=== PATIENT | male | born 1935 | race Caucasian/White ===

== ENCOUNTER 2018-03-13 18:05 | Emergency (ER) | payer BC, MEDICARE ==
[2018-03-13] MEDS ORDERED: Famotidine 20 MG/2 ML SDV IVPUSH ONE (18:11)
[2018-03-13] MEDS ORDERED: Ondansetron 4 MG/2 ML SDV IVPUSH ONE (18:11)
[2018-03-13] MEDS ORDERED: metroNIDAZOLE/Normal Saline 500 MG in Premix Bag 1 BAG IV ONE (18:11)
[2018-03-13] MEDS ORDERED: Sodium Chloride 0.9% 10 ML Syringe FLUSH PRN (18:11)
[2018-03-13] MEDS ORDERED: Pantoprazole 40 MG Vial IVPUSH ONE (18:11)
[2018-03-13] MEDS ORDERED: cefTRIAXone 1 GM in Sodium Chloride 0.9% 100 ML IV ONE (18:11)
--- NOTE | 2018-03-13 18:11 | EDM.PDOC ---
ED HPI GENERAL MEDICAL PROBLEM - General Chief Complaint: Abdominal Pain Stated Complaint: abdominal pain Time Seen by Provider: 03/13/18 18:05 Source of Information: Reports: Patient, Jail Records, Old Records ([facility] EMR. No paper hospital chart available.) History Limitations: Reports: No Limitations - History of Present Illness INITIAL COMMENTS - FREE TEXT/NARRATIVE: Patient was brought to the emergency room via transport vehicle from [facility] in [place] for evaluation of progressive diffuse abdominal pain and cramping with some nausea with patient not having a good bowel movement for the last 5-7 days. He did have some mild loose minimal diarrhea yesterday evening with patient given Tylenol but no other treatments or medications to this point.. He does have a significant history of recurrent diverticulitis and multiple bowel surgeries as below. The patient denies any chest pain/pressure, heart flutter, dizziness, orthostasis, orthopnea, diaphoresis, paresthesias, recent decreased exercise tolerance, or any other anginal-type symptoms. No recent history of heartburn, emesis, significant diarrhea, melena, gross hematochezia, or any food intolerance, including fatty foods, etc.. The patient also denies any recent fever, wheezing, progressive dyspnea, etc., although he has had a yellowish productive cough during the last several days. He denies any gross hematuria, colic, or other UTI symptoms. Patient states his symptoms have progressed since Tuesday evening. Onset: Gradual Onset Date: 03/11/18 Duration: Constant, Getting Worse Location: Reports: Abdomen. Denies: Head, Face, Neck, Chest, Back, Pelvis, Upper Extremity, Left, Upper Extremity, Right, Radiates to Quality: Reports: Pressure, Same as Previous Episode Severity: Moderate Improves with: Reports: None Worsens with: Reports: None Context: Reports: Other (As above). Denies: Sick Contact, Trauma Associated Symptoms: Reports: Cough, cough w sputum, Nausea/Vomiting (No emesis) , Shortness of Breath (Stable chronic with O2 therapy). 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 Cardiovascular History: Reports: CAD, High Cholesterol, Hypertension, [place] Respiratory History: Reports: Bronchitis, Recurrent, COPD, Intubation, Previous , Pneumonia, Recurrent, Sleep Apnea, Other (See Below). 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 Benign pulmonary nodule. Gastrointestinal History: Reports: Bowel Obstruction, Chronic Constipation, Chronic Diarrhea, Diverticulosis, GERD, Irritable Bowel Syndrome, Other (See Below) Other Gastrointestinal History: Recurrent diverticulitis requiring surgeries as below. Nonoperable ventral abdominal and inguinal hernias. Genitourinary History: Reports: Chronic Renal Insuffiency, Dialysis, Peritoneal , Retention, Urinary Musculoskeletal History: Reports: Arthritis, Back Pain, Chronic, Fracture, Neck Pain, Chronic, Osteoarthritis, RA, Other (See Below) Other Musculoskeletal History: Right hip fracture and left elbow fracture with surgeries as below. Psychiatric History: Reports: Anxiety, Depression, Other (See Below) Other Psychiatric History: Chronic insomnia. Endocrine/Metabolic History: Reports: Vitamin D Deficiency, Other (See Below) Other Endocrine/Metabolic History: Hyperkalemia. Hematologic History: Reports: Anemia, B12 Deficiency, Iron Deficiency - Infectious Disease History Infectious Disease History: Reports: MRSA - Past Surgical History GI Surgical History: Reports: Appendectomy, Cholecystectomy, Colon, Other (See Below) Other GI Surgeries/Procedures: Multiple previous abdominal surgeries including possible partial colectomies secondary to diverticulitis and recurrent bowel obstructions. Musculoskeletal Surgical History: Reports: Joint Replacement, ORIF, Other (See Below) Other Musculoskeletal Surgeries/Procedures:: Left elbow prosthesis in January 2017 with concomitant right hip ORIF Social & Family History - Tobacco Use Smoking Status *Q: Former Smoker Tobacco Use Within Last Twelve Months: No Years of Tobacco use: 30 Packs/Tins Daily: 1.5 Packs/Tins Daily Comment: Stop smoking in 1985. Used Tobacco, but Quit: Yes Smoking Cessation Information Provided To Patient: No Second Hand Smoke Exposure: No Second Hand Smoke Education Provided: No - Living Situation & Occupation Living situation: Reports: Extended Care Facility ([facility] in [facility]) ED ROS GENERAL - Review of Systems Review Of Systems: ROS reveals no pertinent complaints other than HPI. ED EXAM, GI/ABD - Physical Exam Exam: See Below Exam Limited By: No Limitations General Appearance: Alert, WD/WN, No Apparent Distress, Anxious (Mild) Eyes: Bilateral: Normal Appearance (No nystagmus), EOMI (PERRLA) Ears: Normal External Exam, Normal Canal, Hearing Grossly Normal, Normal TMs Nose: Normal Inspection, Normal Mucosa, No Blood Throat/Mouth: Normal Lips, Normal Gums, Normal Oropharynx, No Airway Compromise. No: Normal Teeth (Complete dentures uppers and lowers), Dysphagia, Perioral Cyanosis Head: Atraumatic, Normocephalic. No: Facial Swelling, Facial Tenderness Neck: Supple, Non-Tender, Full Range of Motion, Carotid Bruit (Bilateral carotid bruitsmild). No: Lymphadenopathy (L), Lymphadenopathy (R), Thyromegaly Respiratory/Chest: No Respiratory Distress, Lungs Clear, Normal Breath Sounds, No Accessory Muscle Use, Chest Non-Tender. No: Pleural Rub, Retractions Cardiovascular: Normal Peripheral Pulses, Regular Rate, Rhythm, No Edema, No Gallop, No JVD, No Murmur, No Rub. No: Gallop/S3, Gallop/S4, Friction Rub GI/Abdominal Exam: Pelvis Stable, Distended (Severe abdominal distention), Rigid , Tender (Mild diffuse palpation pain), Abnormal Bowel Sounds (Moderate decreased diffuse high-pitched bowel sounds), Hernia (20 cm in diameter large ventral abdominal hernia with 8 cm periumbilical hernia and multiple abdominal incisions from previous surgeries). No: Guarding, Rebound (Male) Exam: Deferred Rectal (Males) Exam: Deferred Back Exam: Normal Inspection, Full Range of Motion. No: CVA Tenderness (L), CVA Tenderness (R), Muscle Spasm Extremities: Normal Inspection, Normal Range of Motion, Non-Tender, No Pedal Edema, Normal Capillary Refill. No: Iam's Sign Neurological: Alert, Oriented, CN II-XII Intact, Normal Cognition, Normal Gait, No Motor/Sensory Deficits Psychiatric: Anxious (Mild). No: Depressed Mood Skin Exam: Warm, Dry, Intact, Normal Color, No Rash. No: Diaphoretic, Ecchymosis, Wound/Incision Lymphatic: No Adenopathy Course - Vital Signs Last Recorded V/S: Last Vital Signs Temp 36.1 C 03/13/18 19:11 Pulse 90 03/13/18 19:11 Resp 20 03/13/18 19:11 BP 106/65 03/13/18 19:11 Pulse Ox 3 L 03/13/18 19:11 Vital Signs - 24 hr 03/13/18 03/13/18 03/13/18 18:05 18:30 19:11 Temperature [ 36.7 C 36.1 C Temporal] Pulse, 81 74 90 Peripheral [ Left Pulse Oximetry] Respiratory 16 16 20 Rate Blood Pressure 106/65 110/64 106/65 [Right Upper Arm] O2 Sat by Pulse 94 L 95 3 L Oximetry - Orders/Labs/Meds Orders: Active Orders 24 hr Category Date Time Status Cardiac Monitoring [RC] . DIRECTED Care 03/13/18 19:15 Active Peripheral IV Care [RC] . DIRECTED Care 03/13/18 18:11 Active Abdomen Series w Chest 1V [CR] Stat Exams 03/13/18 18:11 Taken CULTURE BLOOD [BC] Stat Lab 03/13/18 18:25 Received CULTURE BLOOD [BC] Stat Lab 03/13/18 18:32 Received CULTURE SPUTUM + SMEAR [RM] Routine Lab 03/13/18 19:01 Results Blood Culture x2 Reflex Set [OM.PC] Urgent Oth 03/13/18 18:11 Ordered Nasogastric Orogastric Tube Insertion [OM.PC] Routine Oth 03/13/18 19:11 Ordered Obtain Past Medical Record [OM.PC] Urgent Oth 03/13/18 18:11 Active Peripheral IV Insertion Adult [OM.PC] Stat Oth 03/13/18 18:11 Ordered Resuscitation Status Stat Resus Stat 03/13/18 18:11 Ordered Labs: Laboratory Tests 03/13/18 03/13/18 03/13/18 Range/Units 18:25 18:25 18:25 WBC 9.3 (4.0-10.2) K/uL RBC 3.40 L (4.33-5.41) M/uL Hgb 12.1 L (13.1-16.8) g/dL Hct 36.8 L (39.0-49.0) % MCV 108.2 H (84.0-98.0) fL MCH 35.6 H (28.2-33.3) pg MCHC 32.9 (31.7-36.0) g/dL RDW 15.2 H (11.2-14.1) % Plt Count 205 (150-350) K/uL Neut % (Auto) 69.2 (45.0-80.0) % Lymph % (Auto) 16.7 (10.0-50.0) % [place] % (Auto) 12.0 (2.0-14.0) % Eos % (Auto) 1.8 (0.0-5.0) % Baso % (Auto) 0.3 (0.0-2.0) % Neut # (Auto) 6.44 (1.40-7.00) K/uL Lymph # (Auto) 1.56 (0.50-3.50) K/uL [place] # (Auto) 1.12 H (0.00-1.00) K/uL Eos # (Auto) 0.17 (0.00-0.50) K/uL Baso # (Auto) 0.03 (0.00-0.20) K/uL PT 11.2 (9.5-12.0) SEC INR 1.0 APTT 25.9 (21.0-31.3) SEC Sodium (136-145) mmol/L Potassium (3.5-5.1) mmol/L Chloride (98-107) mmol/L Carbon Dioxide (21.0-32.0) mmol/L BUN (7-18) mg/dL Creatinine (0.51-1.17) mg/dL Est Cr Clr Drug Dosing Estimated GFR (MDRD) mL/min Glucose (74-106) mg/dL Lactic Acid (0.4-2.0) mmol/L Uric Acid (2.6-7.2) mg/dL Calcium (8.5-10.1) mg/dL Magnesium (1.8-2.4) mg/dL Total Bilirubin (0.2-1.0) mg/dL AST (15-37) U/L ALT (12-78) U/L Alkaline Phosphatase (46-116) IU/L Total Protein (6.4-8.2) g/dL Albumin (3.4-5.0) g/dL Amylase 50 (25-115) U/L Lipase (73-393) U/L 01/21/19 01/21/19 Range/Units 18:25 18:25 WBC (4.0-10.2) K/uL RBC (4.33-5.41) M/uL Hgb (13.1-16.8) g/dL Hct (39.0-49.0) % MCV (84.0-98.0) fL MCH (28.2-33.3) pg MCHC (31.7-36.0) g/dL RDW (11.2-14.1) % Plt Count (150-350) K/uL Neut % (Auto) (45.0-80.0) % Lymph % (Auto) (10.0-50.0) % [place] % (Auto) (2.0-14.0) % Eos % (Auto) (0.0-5.0) % Baso % (Auto) (0.0-2.0) % Neut # (Auto) (1.40-7.00) K/uL Lymph # (Auto) (0.50-3.50) K/uL [place] # (Auto) (0.00-1.00) K/uL Eos # (Auto) (0.00-0.50) K/uL Baso # (Auto) (0.00-0.20) K/uL PT (9.5-12.0) SEC INR APTT (21.0-31.3) SEC Sodium 142 (136-145) mmol/L Potassium 3.7 (3.5-5.1) mmol/L Chloride 102 (98-107) mmol/L Carbon Dioxide 30.1 (21.0-32.0) mmol/L BUN 15 (7-18) mg/dL Creatinine 1.16 (0.51-1.17) mg/dL Est Cr Clr Drug Dosing TNP Estimated GFR (MDRD) > 60 mL/min Glucose 110 H (74-106) mg/dL Lactic Acid 0.9 (0.4-2.0) mmol/L Uric Acid 7.8 H (2.6-7.2) mg/dL Calcium 9.1 (8.5-10.1) mg/dL Magnesium 2.0 (1.8-2.4) mg/dL Total Bilirubin 0.6 (0.2-1.0) mg/dL AST 20 (15-37) U/L ALT 22 (12-78) U/L Alkaline Phosphatase 99 (46-116) IU/L Total Protein 7.0 (6.4-8.2) g/dL Albumin 3.7 (3.4-5.0) g/dL Amylase (25-115) U/L Lipase 112 (73-393) U/L Meds: Medications Discontinued Medications Generic Name Dose Route Start Last Admin Trade Name Freq PRN Reason Stop Dose Admin Famotidine 40 mg 03/13/18 18:11 03/13/18 18:43 Pepcid IVPUSH 03/13/18 18:12 40 mg ONETIME ONE Administration Ceftriaxone Sodium 1 gm/ 100 mls @ 200 mls/hr 03/13/18 18:11 03/13/18 18:42 Sodium Chloride IV 03/13/18 18:40 200 mls/hr ONETIME ONE Administration Metronidazole 500 mg/ Premix 100 mls @ 100 mls/hr 03/13/18 18:11 03/13/18 19: 17 IV 03/13/18 19:10 100 mls/hr ONETIME ONE Administration Ondansetron HCl 4 mg 03/13/18 18:11 03/13/18 18:43 Zofran IVPUSH 03/13/18 18:12 4 mg ONETIME ONE Administration Pantoprazole Sodium 40 mg 03/13/18 18:11 03/13/18 18:42 Protonix Iv IVPUSH 03/13/18 18:12 40 mg ONETIME ONE Administration Sodium Chloride 10 ml 03/13/18 18:11 Saline Flush FLUSH ASDIRECTED PRN Keep Vein Open - Radiology Interpretation Free Text/Narrative:: Acute abdominal x-rays shows severe diffuse bowel gaseous distention with questionable free air however difficult to determine secondary to above bowel findings. Evidence of probable obstruction versus volvulus. Note moderate aortic valve calcification with additional multiple pulmonary obstructive disease but no pneumothorax, CHF, etc.. Note status post right hip ORIF and osteoarthritic changes in thoracic and lumbar spine. Note subsequent telephone consultation with Dr. Bird, radiologist, who does agree with the above findings, although he does not suspect free air at this time. CT scan advisable. Departure - Departure Time of Disposition: 21:45 Disposition: DC/Tfer to Acute Hospital 02 Condition: Fair Clinical Impression: Peptic reflux disease, Renal insufficiency, Macrocytic anemia, Hyperuricemia Abdominal pain Qualifiers: Abdominal location: generalized Qualified Code(s): R10.84 - Generalized abdominal pain COPD (chronic obstructive pulmonary disease) Qualifiers: COPD type: emphysema Emphysema type: panlobular Qualified Code(s): J43.1 - Panlobular emphysema Rheumatoid arthritis Qualifiers: Rheumatoid arthritis location: multiple sites Rheumatoid factor presence: unspecified presence Qualified Code(s): M06.9 - Rheumatoid arthritis, unspecified Hypertension Qualifiers: Hypertension type: essential hypertension Qualified Code(s): I10 - Essential ( primary) hypertension Coronary artery disease Qualifiers: Coronary Disease-Associated Artery/Lesion type: [place] artery [place] vs. transplanted heart: [place] heart Associated angina: without angina Qualified Code(s): I25.10 - Atherosclerotic heart disease of [place] coronary artery without angina pectoris Abdominal hernia Qualifiers: Hernia type: ventral Obstruction and gangrene presence: without obstruction or gangrene Qualified Code(s): K43.9 - Ventral hernia without obstruction or gangrene - Discharge Information *PRESCRIPTION DRUG MONITORING PROGRAM REVIEWED*: Not Applicable *COPY OF PRESCRIPTION DRUG MONITORING REPORT IN PATIENT EDWINA: Not Applicable Referrals: Sheets-Denita Valdez MD [Primary Care Provider] - Forms: ED Department Discharge, Interfacility Transfer EMTALA - Problem List & Annotations (1) Abdominal pain SNOMED Code(s): 03688308 Code(s): R10.9 - UNSPECIFIED ABDOMINAL PAIN Status: Acute Priority: High Onset Date: ~03/11/18 Annotation/Comment:: Progressive abdominal pain likely secondary to developing bowel obstruction secondary to either diverticulitis, abdominal adhesions, or volvulus. CT scan of the abdomen and pelvis is advisable. Our CT scanner is unfortunately down this evening. Initial telephone consultation at 19:[address] Ortiz, hospitalist at the [facility] in [place], who wanted to consult with her general surgeon prior to accepting the patient. Subsequent telephone consultation at 19:45 hours with patient accepted for direct admission to their facility. No further treatment recommendations were given. Secondary to ambulance availability hospital transfer was delayed without sequelae. Basic ambulance transport apparently also not available. Note immediately upon patient's arrival to the emergency room we did treat him prophylactically with IV Rocephin, IV Flagyl, IV Pepcid, and IV Protonix. He was also given IV Zofran for his mild nausea. The patient refused recommended NG tube which was canceled per his request. Vital signs and physical exam were stable at time of transfer. Qualifiers: Abdominal location: generalized Qualified Code(s): R10.84 - Generalized abdominal pain (2) Abdominal hernia SNOMED Code(s): 52588748 Code(s): K46.9 - UNSPECIFIED ABDOMINAL HERNIA WITHOUT OBSTRUCTION OR GANGRENE Status: Chronic Priority: Medium Annotation/Comment:: Inoperable by patient history. Qualifiers: Hernia type: ventral Obstruction and gangrene presence: without obstruction or gangrene Qualified Code(s): K43.9 - Ventral hernia without obstruction or gangrene (3) COPD (chronic obstructive pulmonary disease) SNOMED Code(s): 04452073 Code(s): J44.9 - CHRONIC OBSTRUCTIVE PULMONARY DISEASE, UNSPECIFIED Status : Chronic Priority: Medium Annotation/Comment:: Yellowish productive cough with sputum obtained for culture and sensitivity. No direct pneumonia by today' s x-rays, however. IV Rocephin started as above. No fever or leukocytosis. Qualifiers: COPD type: emphysema Emphysema type: panlobular Qualified Code(s): J43.1 - Panlobular emphysema (4) Coronary artery disease SNOMED Code(s): 89274745 Code(s): I25.10 - ATHSCL HEART DISEASE OF [place] CORONARY ARTERY W/O ANG PCTRS Status: Chronic Priority: Medium Annotation/Comment:: No recent chest pain or anginal type symptoms Qualifiers: Coronary Disease-Associated Artery/Lesion type: [place] artery [place] vs. transplanted heart: [place] heart Associated angina: without angina Qualified Code(s): I25.10 - Atherosclerotic heart disease of [place] coronary artery without angina pectoris (5) Hypertension SNOMED Code(s): 88536663 Code(s): I10 - ESSENTIAL (PRIMARY) HYPERTENSION Status: Chronic Priority : Medium Annotation/Comment:: The blood pressures were stable in the emergency room Qualifiers: Hypertension type: essential hypertension Qualified Code(s): I10 - Essential (primary) hypertension (6) Hyperuricemia SNOMED Code(s): 72850611 Code(s): E79.0 - HYPERURICEMIA W/O SIGNS OF INFLAM ARTHRIT AND TOPHACEOUS DIS Status: Acute Priority: Medium Onset Date: 03/13/18 Annotation/ Comment:: Newly diagnosed. (7) Macrocytic anemia SNOMED Code(s): 89554489 Code(s): D53.9 - NUTRITIONAL ANEMIA, UNSPECIFIED Status: Chronic Priority : Medium Annotation/Comment:: Known history of vitamin B-12 and folic acid deficiency with current supplementation. (8) Peptic reflux disease SNOMED Code(s): 537370220 Code(s): K21.9 - GASTRO-ESOPHAGEAL REFLUX DISEASE WITHOUT ESOPHAGITIS Status: Chronic Priority: Medium Annotation/Comment:: Stable by history with IV Pepcid and IV Protonix given as above. (9) Renal insufficiency SNOMED Code(s): 369755866, 721752495 Code(s): N28.9 - DISORDER OF KIDNEY AND URETER, UNSPECIFIED Status: Chronic Priority: Medium Annotation/Comment:: Stable by history with normal creatinine today. (10) Rheumatoid arthritis SNOMED Code(s): 98029865 Code(s): M06.9 - RHEUMATOID ARTHRITIS, UNSPECIFIED Status: Chronic Priority: Medium Annotation/Comment:: Stable by history. Qualifiers: Rheumatoid arthritis location: multiple sites Rheumatoid factor presence: unspecified presence Qualified Code(s): M06.9 - Rheumatoid arthritis, unspecified - Problem List Review Problem List Initiated/Reviewed/Updated: Yes - My Orders Last 24 Hours: My Active Orders 03/13/18 18:11 Peripheral IV Care [RC] . DIRECTED Abdomen Series w Chest 1V [CR] Stat Blood Culture x2 Reflex Set [OM.PC] Urgent Obtain Past Medical Record [OM.PC] Urgent Peripheral IV Insertion Adult [OM.PC] Stat Resuscitation Status Stat 03/13/18 18:25 CULTURE BLOOD [BC] Stat 03/13/18 18:32 CULTURE BLOOD [BC] Stat 03/13/18 19:01 CULTURE SPUTUM + SMEAR [RM] Routine 03/13/18 19:11 Nasogastric Orogastric Tube Insertion [OM.PC] Routine 03/13/18 19:15 Cardiac Monitoring [RC] . DIRECTED - Assessment/Plan Last 24 Hours: My Active Orders 03/13/18 18:11 Peripheral IV Care [RC] . DIRECTED Abdomen Series w Chest 1V [CR] Stat Blood Culture x2 Reflex Set [OM.PC] Urgent Obtain Past Medical Record [OM.PC] Urgent Peripheral IV Insertion Adult [OM.PC] Stat Resuscitation Status Stat 03/13/18 18:25 CULTURE BLOOD [BC] Stat 03/13/18 18:32 CULTURE BLOOD [BC] Stat 03/13/18 19:01 CULTURE SPUTUM + SMEAR [RM] Routine 03/13/18 19:11 Nasogastric Orogastric Tube Insertion [OM.PC] Routine 03/13/18 19:15 Cardiac Monitoring [RC] . DIRECTED Assessment:: As above Plan: As above. Extensive precautions were given to the patient, who is in agreement with the treatment plan. Ambulance transfer to [place] with plsql developer accompaniment as above.
[2018-03-13 18:59] LABS: CHLORIDE,CL 102 mmol/L (98-107); SODIUM,NA 142 mmol/L (136-145)
[2018-03-13] MEDS ORDERED: HYDROmorphone 1 MG/ML Syringe IVPUSH ONE (19:00)
== END 2018-03-13 21:45 ==
LOC: LL.ED 18:05
DX: K21.9 Gastro-esophageal reflux disease without esophagitis (principal); D53.9 Nutritional anemia, unspecified; E79.0 Hyperuricemia without signs of inflammatory arthritis and tophaceous disease; J43.1 Panlobular emphysema; M06.9 Rheumatoid arthritis, unspecified; I12.9 Hypertensive chronic kidney disease with stage 1 through stage 4 chronic kidney disease, or unspecified chronic kidney disease; I25.10 Atherosclerotic heart disease of native coronary artery without angina pectoris; N18.9 Chronic kidney disease, unspecified; K43.9 Ventral hernia without obstruction or gangrene; I25.2 Old myocardial infarction; Z87.891 Personal history of nicotine dependence
CPT/HCPCS: 36415; 74022; 80053; 82150; 83605; 83690; 83735; 84550; 85025; 85610; 85730; 87040; 87070; 87077; 87186; 87205; 96365; 96367; 96375; 99285; C9113; J0696; J2405; J3490; J7050

== ENCOUNTER 2018-08-03 14:00 | Inpatient (IN) | payer MEDICARE, BC ==
--- NOTE | 2018-08-03 15:33 | PCM.HP ---
H&P History of Present Illness - General Date of Service: 08/03/18 Admit Problem/Dx: Admission Diagnosis/Problem Admission Diagnosis/Problem Pneumonia Source of Information: Patient, Prison Records History Limitations: Reports: No Limitations - History of Present Illness Initial Comments - Free Text/Narative: Seen two days ago at the [facility] for increased SOB. Physical exam and labs done. Sputum C&S obtained and returned today with abundant Pseudomonas aeruginosa, and the decision was made to admit for treatment. Onset of Symptoms: Reports: Gradual Duration of Symptoms: Reports: Day(s): Location: Reports: Chest Improves with: Reports: Medication (nebs), Rest Worsens with: Reports: Movement Context: Reports: Other (chronic lung disease) Associated Symptoms: Reports: Cough, cough w sputum, Malaise, Shortness of Breath, Weakness - Related Data Allergies/Adverse Reactions: Allergies Allergy/AdvReac Type Severity Reaction Status Date / Time No Known Drug Allergies Allergy Other Verified 03/13/18 18:06 Home Medications: Home Meds Albuterol Sulfate [Proair Respiclick] 90 mcg IH QID 03/14/18 [History] Albuterol/Ipratropium [DuoNeb 3.0-0.5 MG/3 ML] 1 ampule INH Q4HR PRN 03/14/18 [ History] Albuterol/Ipratropium [DuoNeb 3.0-0.5 MG/3 ML] 1 ampule INH QID 03/14/18 [ History] Budesonide [Pulmicort] 1 ampule INH BID 03/14/18 [History] Calcium Carbonate/Vitamin D3 [OystCal-D 250 MG-125 Units] 1 tab PO DAILY [History] Cholecalciferol (Vitamin D3) [Vitamin D3] 2,000 unit PO DAILY 03/14/18 [History] Cyanocobalamin (Vitamin B-12) [B-12] 1 tab PO DAILY 03/14/18 [History] Eucalyptus Oil/Menthol/Camphor [Vicks Vaporub Ointment] 1 applic TP ASDIRECTED PRN 03/14/18 [History] Fluticasone Furoate [Arnuity Ellipta] 2 sprays IH DAILY 03/14/18 [History] Folic Acid 1 mg PO DAILY 03/14/18 [History] L.acidoph,Saliva/B.bif/S.therm [Acidophilus 175 mg Capsule] 1 cap PO DAILY 03/14 [History] Lidocaine/Transparent Dressing [Lidocaine 4% Kit] 1 each TP TID PRN 03/14/18 [ History] Loperamide [Imodium AD] 2 mg PO ASDIRECTED PRN 03/14/18 [History] Loratadine 10 mg PO DAILY 03/14/18 [History] Magnesium Oxide 420 mg PO BID 03/14/18 [History] Methotrexate Sodium [Methotrexate] 15 mg PO WEEKLY 03/14/18 [History] Mirtazapine 45 mg PO DAILY 03/14/18 [History] Olodaterol HCl [Striverdi Respimat] 2 puff INH DAILY 03/14/18 [History] PARoxetine HCl [Paxil] 40 mg PO DAILY 03/14/18 [History] Polyethylene Glycol 3350 [MiraLAX] 17 gm PO DAILY PRN 03/14/18 [History] Triamcinolone Acetonide [Triamcinolone Acetonide 0.025%] 15 gm .XX TID 03/14/18 [History] hydrOXYzine HCl [Atarax] 10 mg PO BEDTIME 03/14/18 [History] hydroCHLOROthiazide [Hydrochlorothiazide] 25 mg PO DAILY 03/14/18 [History] oxyCODONE 5 mg PO Q6HR PRN 03/14/18 [History] Past Medical History HEENT History: Reports: Impaired Vision, Other (See Below) Other HEENT History: Patient wears reading glasses. Cardiovascular History: Reports: CAD, High Cholesterol, Hypertension, [place] Respiratory History: Reports: Bronchitis, Recurrent, COPD, Intubation, Previous , Pneumonia, Recurrent, Sleep Apnea, Other (See Below). 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 Benign pulmonary nodule. Gastrointestinal History: Reports: Bowel Obstruction, Chronic Constipation, Chronic Diarrhea, Diverticulosis, GERD, Irritable Bowel Syndrome, Other (See Below) Other Gastrointestinal History: Recurrent diverticulitis requiring surgeries as below. Nonoperable ventral abdominal and inguinal hernias. Genitourinary History: Reports: Chronic Renal Insuffiency, Dialysis, Peritoneal , Retention, Urinary Musculoskeletal History: Reports: Arthritis, Back Pain, Chronic, Fracture, Neck Pain, Chronic, Osteoarthritis, RA, Other (See Below) Other Musculoskeletal History: Right hip fracture and left elbow fracture with surgeries as below. Psychiatric History: Reports: Anxiety, Depression, Other (See Below) Other Psychiatric History: Chronic insomnia. Endocrine/Metabolic History: Reports: Vitamin D Deficiency, Other (See Below) Other Endocrine/Metabolic History: Hyperkalemia. Hematologic History: Reports: Anemia, B12 Deficiency, Iron Deficiency - Infectious Disease History Infectious Disease History: Reports: MRSA - Past Surgical History GI Surgical History: Reports: Appendectomy, Cholecystectomy, Colon, Other (See Below) Other GI Surgeries/Procedures: Multiple previous abdominal surgeries including possible partial colectomies secondary to diverticulitis and recurrent bowel obstructions. Musculoskeletal Surgical History: Reports: Joint Replacement, ORIF, Other (See Below) Other Musculoskeletal Surgeries/Procedures:: Left elbow prosthesis in January 2017 with concomitant right hip ORIF Social & Family History - Tobacco Use Smoking Status *Q: Former Smoker Tobacco Use Within Last Twelve Months: No Used Tobacco, but Quit: Yes - Caffeine Use Caffeine Use: Reports: Coffee - Alcohol Use Alcohol Use History: Yes Alcohol Use in Last Twelve Months: Yes Alcohol Use Frequency: Rarely - Recreational Drug Use Recreational Drug Use: No Drug Use in Last 12 Months: No - Living Situation & Occupation Living situation: Reports: Extended Care Facility ([facility]) H&P Review of Systems - Review of Systems: Review Of Systems: ROS reveals no pertinent complaints other than HPI. Exam - Exam Exam: See Below - Vital Signs Vital Signs: Last Vital Signs Temp 99.1 F 08/03/18 14:53 Pulse 94 08/03/18 14:53 Resp 18 08/03/18 14:53 BP 162/104 H 08/03/18 14:53 Pulse Ox 93 L 08/03/18 14:53 Weight: 183 lb - Exam Quality Assessment: Supplemental Oxygen (typically uses at 2-3 L/m, recently increased per self to 4-5 L/m) General: Alert, Oriented, 4 HEENT: Hearing Intact, Posterior Pharynx Clear Neck: Supple, Trachea Midline Lungs: Decreased Breath Sounds Cardiovascular: Regular Rate, Regular Rhythm GI/Abdominal Exam: Normal Bowel Sounds, Soft, Non-Tender, Hernia (ventral) (Male) Exam: Deferred Rectal (Males) Exam: Deferred Back Exam: Normal Inspection Extremities: Pedal Edema (mild) Skin: Warm, Dry, Intact, Rash (chronic folliculitis/dermatitis to back, followed by Derm) Neuro Extensive - Mental Status: Alert, Oriented x3, Normal Mood/Affect Psychiatric: Alert, Normal Affect, Normal Mood - Problem List (1) Pneumonia due to Pseudomonas aeruginosa SNOMED Code(s): 08099363 ICD Code: J15.1 - PNEUMONIA DUE TO PSEUDOMONAS Status: Acute Priority: High Current Visit: Yes Onset Date: ~08/01/18 Problem List Initiated/Reviewed/Updated: Yes Orders Last 24hrs: Active Orders 24 hr Category Date Time Status Patient Status [ADT] Routine ADT 08/03/18 14:53 Active Antiembolic Devices [RC] PER UNIT ROUTINE Care 08/03/18 14:56 Active Height and Weight [RC] DAILY Care 08/03/18 14:53 Active Intake and Output [RC] QSHIFT Care 08/03/18 14:55 Active May Shower [RC] ASDIRECTED Care 08/03/18 14:53 Active Oxygen Therapy [RC] PRN Care 08/03/18 14:53 Active Peripheral IV Care [RC] . DIRECTED Care 08/03/18 14:57 Active Up ad Kristel [RC] ASDIRECTED Care 08/03/18 14:53 Active VTE/DVT Education [RC] PER UNIT ROUTINE Care 08/03/18 14:53 Active Vital Signs [RC] Q4H Care 08/03/18 14:53 Active Consult to Case Management/Messenger Floorperson [CONS] Cons 08/03/18 15:03 Active Routine C-REACTIVE PROTEIN [CHEM] AM Lab 08/04/18 05:11 Ordered C-REACTIVE PROTEIN [CHEM] AM Lab 08/05/18 05:11 Ordered C-REACTIVE PROTEIN [CHEM] AM Lab 08/06/18 05:11 Ordered C-REACTIVE PROTEIN [CHEM] AM Lab 08/07/18 05:11 Ordered CBC WITH AUTO DIFF [HEME] AM Lab 08/04/18 05:11 Ordered CBC WITH AUTO DIFF [HEME] AM Lab 08/05/18 05:11 Ordered CBC WITH AUTO DIFF [HEME] AM Lab 08/06/18 05:11 Ordered CBC WITH AUTO DIFF [HEME] AM Lab 08/07/18 05:11 Ordered COMPREHENSIVE METABOLIC PN,CMP [CHEM] AM Lab 08/04/18 05:11 Ordered COMPREHENSIVE METABOLIC PN,CMP [CHEM] AM Lab 08/05/18 05:11 Ordered COMPREHENSIVE METABOLIC PN,CMP [CHEM] AM Lab 08/06/18 05:11 Ordered COMPREHENSIVE METABOLIC PN,CMP [CHEM] AM Lab 08/07/18 05:11 Ordered CULTURE BLOOD [BC] Stat Lab 08/03/18 15:08 Received CULTURE BLOOD [BC] Stat Lab 08/03/18 15:15 Received PRO B-TYPE NATRIUR PEPT,BNPPRO [CHEM] Routine Lab 08/04/18 05:11 Ordered Piperacillin/Tazobactam [Zosyn] 3.375 gm Med 08/03/18 16:00 Active Sodium Chloride 0.9% [Normal Saline] 100 ml IV Q6H Sodium Chloride 0.9% [Saline Flush] Med 08/03/18 14:57 Active 10 ml FLUSH ASDIRECTED PRN cefTAZidime Pentahydrate [Fortaz] Med 08/03/18 16:00 Active 1 gm IVPUSH Q8HR Antiembolic Hose [OM.PC] Per Unit Routine Oth 08/03/18 14:56 Ordered Blood Culture x2 Reflex Set [OM.PC] Stat Oth 08/03/18 14:53 Ordered Peripheral IV Insertion Adult [OM.PC] Routine Oth 08/03/18 14:57 Ordered Resuscitation Status Routine Resus Stat 08/03/18 14:53 Ordered Medication Orders Ceftazidime (Fortaz) 1 gm IVPUSH Q8HR CAROLEE Piperacillin Sod/Tazobactam (Sod 3.375 gm/ Sodium Chloride) 100 mls @ 200 mls/ hr IV Q6H CAROLEE Sodium Chloride (Saline Flush) 10 ml FLUSH ASDIRECTED PRN PRN Reason: Keep Vein Open Assessment/Plan Comment:: 08-03-18 Jose Angel Colvin PA-C Patient is being admitted for IP treatment for the Pseudomonas aeruginosa pneumonia, using IV Fortaz and Zosyn per the C&S results. He has long-standing oxygen-dependent COPD and Chronic Respiratory Failure with Hypoxia. He will require at least 96 hours of IP treatment. I did call up to the [facility] and spoke with Fire Alarm Repairer Vani, but they have no bed availability today. Consult ordered for Leather Whitener [facility] a [facility] becomes [facility]. Dr. Pacheco notified of this admission at the time of admit.
[2018-08-03] MEDS: cefTAZidime 1 GM Vial IVPUSH SCH (15:49)
[2018-08-03] MEDS: Piperacillin/Tazobactam 3.375 GM in Sodium Chloride 0.9% 100 ML IV SCH ×2 (15:49→22:29)
[2018-08-03] MEDS: Sodium Chloride 0.9% 10 ML Syringe FLUSH PRN (15:49)
[2018-08-03] MEDS ORDERED: Albuterol 8 GM Inhaler INH PRN (17:12)
[2018-08-03] MEDS ORDERED: Acetaminophen 500 MG Tab PO PRN (17:12)
[2018-08-03] MEDS ORDERED: Triamcinolone Acetonide 0.025% Crm 15 GM Tube TOP PRN (17:12)
[2018-08-03] MEDS ORDERED: traMADol 50 MG Tab PO PRN (17:12)
[2018-08-03] MEDS ORDERED: Loperamide 2 MG Tab PO PRN (17:12)
[2018-08-03] MEDS ORDERED: Triamcinolone Acetonide 0.5% Crm 15 GM Tube TOP PRN (17:12)
[2018-08-03] MEDS ORDERED: LIDOCAINE HCL TP PRN (17:12)
[2018-08-03] MEDS ORDERED: hydrOXYzine HCl 25 MG Tab PO PRN (17:12)
[2018-08-03] MEDS ORDERED: Albuterol 0.083% 2.5 MG/3 ML Neb Soln NEB PRN (17:12)
[2018-08-03] MEDS ORDERED: Polyethylene Glycol 3350 Powder 17 GM Packet PO PRN (17:12)
[2018-08-03] MEDS: methylPREDNISolone Sodium Succinate 40 MG/1 ML SDV IVPUSH SCH (17:47)
[2018-08-03] MEDS ORDERED: Triamcinolone Acetonide 0.5% Crm 15 GM Tube TOP SCH (18:00)
[2018-08-03] MEDS ORDERED: Budesonide 0.5 MG/2 ML Neb Susp INH SCH (18:00)
[2018-08-03] MEDS ORDERED: hydrOXYzine HCl 25 MG Tab PO SCH (18:00)
[2018-08-03] MEDS: Albuterol/Ipratropium 3.0-0.5 MG/3 ML Neb Soln INH SCH (19:33)
[2018-08-03] MEDS: hydrOXYzine HCl 25 MG Tab PO SCH (19:33)
[2018-08-03] MEDS: Triamcinolone Acetonide 0.5% Crm 15 GM Tube TOP SCH (19:33)
[2018-08-03] MEDS: Sodium Chloride 0.9% 10 ML Syringe FLUSH SCH (19:34)
[2018-08-03] MEDS ORDERED: PARoxetine 20 MG Tab PO SCH (22:09)
[2018-08-03] MEDS ORDERED: Mirtazapine 30 MG Tab PO SCH (22:15)
[2018-08-04] MEDS: cefTAZidime 1 GM Vial IVPUSH SCH ×2 (01:00→08:24)
[2018-08-04] MEDS: methylPREDNISolone Sodium Succinate 40 MG/1 ML SDV IVPUSH SCH ×2 (01:01→09:01)
[2018-08-04] MEDS: Sodium Chloride 0.9% 10 ML Syringe FLUSH PRN ×3 (01:02→09:03)
[2018-08-04] MEDS: Piperacillin/Tazobactam 3.375 GM in Sodium Chloride 0.9% 100 ML IV SCH ×2 (04:37→09:02)
[2018-08-04] MEDS ORDERED: Loratadine 10 MG Tab PO SCH (08:00)
[2018-08-04] MEDS ORDERED: Mometasone Furoate Powder 220 MCG/Puff 14 Dose Inhaler INH SCH (08:00)
[2018-08-04] MEDS ORDERED: Mirtazapine 30 MG Tab PO SCH (08:00)
[2018-08-04] MEDS ORDERED: Hydrochlorothiazide 25 MG Tab PO SCH (08:00)
[2018-08-04] MEDS ORDERED: Fluticasone Propionate Nasal Spray 16 GM Bottle NASBOTH SCH (08:00)
[2018-08-04] MEDS ORDERED: Arformoterol 15 MCG/2 ML Neb Soln INH SCH (08:00)
[2018-08-04] MEDS ORDERED: Non-Formulary Medication 1 Each (Cholecalciferol (Vitamin D3) [Vitamin D3] 2,000 UNIT) PO SCH (08:00)
[2018-08-04] MEDS ORDERED: Acetaminophen 500 MG Tab PO SCH ×2 (08:00→16:00)
[2018-08-04] MEDS ORDERED: FLUTICASONE FUROATE IH SCH (08:00)
[2018-08-04] MEDS ORDERED: Aspirin 81 MG Tab.EC PO SCH (08:00)
[2018-08-04] MEDS ORDERED: CYANOCOBALAMIN PO SCH (08:00)
[2018-08-04] MEDS ORDERED: Tiotropium Inhaler 18 MCG Inhalation Powder Cap Kit of 5 INH SCH (08:00)
[2018-08-04 08:18] LABS: CHLORIDE,CL 103 mmol/L (98-107); SODIUM,NA 143 mmol/L (136-145)
[2018-08-04] MEDS: hydrOXYzine HCl 25 MG Tab PO SCH (08:23)
[2018-08-04] MEDS: Albuterol/Ipratropium 3.0-0.5 MG/3 ML Neb Soln INH SCH ×2 (08:24→11:48)
[2018-08-04] MEDS: Sodium Chloride 0.9% 10 ML Syringe FLUSH SCH (08:25)
[2018-08-04] MEDS: Triamcinolone Acetonide 0.5% Crm 15 GM Tube TOP SCH (09:01)
[2018-08-04 12:43] LABS: BICARBONATE,ARTERIAL 33.6 mmol/L (22-26); O2 DELIVERY DEVICE NASAL CANNULA; O2 SATURATION ARTERIAL 80 % (95-98); PCO2 ARTERIAL 57 mmHG (35-45); PO2 ARTERIAL 47 mmHG (80-105)
[2018-08-04 12:44] LABS: BASE EXCESS ARTERIAL 8 mmol/L (-2-3)
--- NOTE | 2018-08-04 13:09 | PCM.PN ---
- General Info Date of Service: 08/04/18 Admission Dx/Problem (Free Text): Admission Diagnosis/Problem Admission Diagnosis/Problem Pneumonia Functional Status: Reports: Tolerating Diet - Review of Systems General: Reports: Weakness, Fatigue HEENT: Reports: No Symptoms Pulmonary: Reports: Shortness of Breath, Cough, Sputum Cardiovascular: Reports: No Symptoms Gastrointestinal: Reports: No Symptoms Genitourinary: Reports: No Symptoms Musculoskeletal: Reports: No Symptoms Skin: Reports: Rash (chronic) Neurological: Reports: No Symptoms Psychiatric: Reports: No Symptoms - Patient Data Vitals - Most Recent: Last Vital Signs Temp 97.8 F 08/04/18 08:00 Pulse 85 08/04/18 08:00 Resp 17 08/04/18 08:00 BP 125/64 08/04/18 08:00 Pulse Ox 93 L 08/04/18 08:00 Weight - Most Recent: 182 lb 15.986 oz I&O - Last 24 Hours: Intake & Output 08/03/18 08/04/18 08/04/18 22:59 06:59 14:59 Intake Total 423 093 5887 Balance 804 148 2935 Lab Results Last 24 Hours: Laboratory Results - last 24 hr 08/04/18 08/04/18 08/04/18 Range/Units 07:20 07:20 12:38 WBC 6.4 (4.0-10.2) K/uL RBC 3.44 L (4.33-5.41) M/uL Hgb 11.7 L (13.1-16.8) g/dL Hct 36.2 L (39.0-49.0) % MCV 105.2 H (84.0-98.0) fL MCH 34.0 H (28.2-33.3) pg MCHC 32.3 (31.7-36.0) g/dL RDW 12.9 (11.2-14.1) % Plt Count 238 (150-350) K/uL Neut % (Auto) 82.8 H (45.0-80.0) % Lymph % (Auto) 12.5 (10.0-50.0) % [place] % (Auto) 4.5 (2.0-14.0) % Eos % (Auto) 0.0 (0.0-5.0) % Baso % (Auto) 0.2 (0.0-2.0) % Neut # (Auto) 5.28 (1.40-7.00) K/uL Lymph # (Auto) 0.80 (0.50-3.50) K/uL [place] # (Auto) 0.29 (0.00-1.00) K/uL Eos # (Auto) 0.00 (0.00-0.50) K/uL Baso # (Auto) 0.01 (0.00-0.20) K/uL ABG pH 7.38 (7.35-7.45) ABG pCO2 57 H* (35-45) mmHG ABG pO2 47 L* (80-105) mmHG ABG HCO3 33.6 H (22-26) mmol/L ABG Total CO2 35 H (23-27) mmol/L ABG O2 Saturation 80 L (95-98) % ABG Base Excess 8 H (-2-3) mmol/L O2 Delivery Device Nasal cannula Sodium 143 (136-145) mmol/L Potassium 3.7 (3.5-5.1) mmol/L Chloride 103 (98-107) mmol/L Carbon Dioxide 33.5 H (21.0-32.0) mmol/L BUN 20 H (7-18) mg/dL Creatinine 1.01 (0.51-1.17) mg/dL Est Cr Clr Drug Dosing 51.68 mL/min Estimated GFR (MDRD) > 60 mL/min Glucose 153 H (74-106) mg/dL Calcium 8.6 (8.5-10.1) mg/dL Total Bilirubin 0.6 (0.2-1.0) mg/dL AST 17 (15-37) U/L ALT 19 (12-78) U/L Alkaline Phosphatase 75 (46-116) IU/L C-Reactive Protein 2.2 H (<=0.9) mg/dL NT-Pro-B Natriuret Pep 494 H (0-125) pg/mL Total Protein 6.5 (6.4-8.2) g/dL Albumin 3.2 L (3.4-5.0) g/dL Med Orders - Current: Current Medications Acetaminophen (Tylenol Extra Strength) 1,000 mg PO TID PRN PRN Reason: Pain Acetaminophen (Tylenol Extra Strength) 1,000 mg PO DAILY@1600 CAROLEE Albuterol (Proventil Neb Soln) 2.5 mg NEB Q4HR PRN PRN Reason: Shortness of Breath Last Admin: 08/03/18 17:47 Dose: 2.5 mg Albuterol (Ventolin Hfa) 0 gm INH Q6H PRN PRN Reason: Shortness of Breath Albuterol/Ipratropium (Duoneb 3.0-0.5 Mg/3 Ml) 3 ml INH QID [facility] Last Admin: 08/04/18 11:48 Dose: 3 ml Arformoterol Tartrate (Brovana) 15 mcg INH Q12H [facility] Last Admin: 08/04/18 08:24 Dose: 15 mcg Aspirin (Halfprin) 81 mg PO DAILY [facility] Last Admin: 08/04/18 08:23 Dose: 81 mg Ceftazidime (Fortaz) 1 gm IVPUSH Q8HR [facility] Last Admin: 08/04/18 08:24 Dose: 1 gm Fluticasone Propionate (Flonase) 0 gm NASBOTH DAILY [facility] Last Admin: 08/04/18 08:24 Dose: 2 sprays Hydrochlorothiazide (Hydrochlorothiazide) 25 mg PO DAILY [facility] Last Admin: 08/04/18 08:23 Dose: 25 mg Hydroxyzine HCl (Atarax) 25 mg PO BID PRN PRN Reason: Itching Hydroxyzine HCl (Atarax) 25 mg PO BID@0800,2000 [facility] Last Admin: 08/04/18 08:23 Dose: 25 mg Piperacillin Sod/Tazobactam (Sod 3.375 gm/ Sodium Chloride) 100 mls @ 200 mls/ hr IV Q6H [facility] Last Admin: 08/04/18 09:02 Dose: 200 mls/hr Loperamide HCl (Imodium Ad) 2 mg PO ASDIRECTED PRN PRN Reason: Diarrhea Loratadine (Claritin) 10 mg PO DAILY [facility] Last Admin: 08/04/18 08:23 Dose: 10 mg Methylprednisolone Sodium Succinate (Solu-Medrol) 40 mg IVPUSH Q8H [facility] Last Admin: 08/04/18 09:01 Dose: 40 mg Mirtazapine (Remeron) 60 mg PO BEDTIME [facility] Last Admin: 08/03/18 22:29 Dose: 60 mg Lidocaine Hcl [ Aspercreme] 1 Applic ) 1 applic TP TID PRN PRN Reason: Pain Paroxetine HCl (Paxil) 40 mg PO BEDTIME [facility] Last Admin: 08/03/18 22:29 Dose: 40 mg Polyethylene Glycol (Miralax) 17 gm PO DAILY PRN PRN Reason: Constipation Sodium Chloride (Saline Flush) 10 ml FLUSH ASDIRECTED PRN PRN Reason: Keep Vein Open Last Admin: 08/04/18 09:03 Dose: 10 ml Sodium Chloride (Saline Flush) 10 ml FLUSH Q12HR [facility] Last Admin: 08/04/18 08:25 Dose: 10 ml Tiotropium [place] (Spiriva Handihaler) 18 mcg INH DAILY [facility] Last Admin: 08/04/18 08:25 Dose: 18 mcg Tramadol HCl (Ultram) 50 mg PO BEDTIME PRN PRN Reason: Pain Triamcinolone Acetonide (Triamcinolone Acetonide 0.025%) 0 gm TOP TID PRN PRN Reason: Itching Triamcinolone Acetonide (Triamcinolone Acetonide 0.5%) 0 gm TOP DAILY PRN PRN Reason: Itching Triamcinolone Acetonide (Triamcinolone Acetonide 0.5%) 0 gm TOP TID@0800,1400, 2000 [facility] Last Admin: 08/04/18 09:01 Dose: 1 applic Discontinued Medications Acetaminophen (Tylenol Extra Strength) 1,000 mg PO DAILY [facility] Budesonide (Pulmicort) mg INH BID [facility] Hydroxyzine HCl (Atarax) 25 mg PO BID [facility] Mirtazapine (Remeron) 60 mg PO DAILY [facility] Non-Formulary Medication (Cholecalciferol (Vitamin D3) [Vitamin D3]) 2,000 unit PO DAILY [facility] Non-Formulary Medication (Cyanocobalamin (Vitamin B-12) [B-12]) 1 tab PO DAILY [facility] Pneumococcal Polyvalent Vaccine (Pharmacy To Dose - Pneumonia) 1 each .XX ASDIRECTED [facility] Triamcinolone Acetonide (Triamcinolone Acetonide 0.5%) 0 gm TOP TID [facility] Last Admin: 08/03/18 18:41 Dose: Not Given - Exam General: Alert, Oriented HEENT: Mucous Membr. Moist/[place] Neck: Supple, Trachea Midline Lungs: Decreased Breath Sounds, Rhonchi Cardiovascular: Regular Rate, Regular Rhythm GI/Abdominal Exam: Normal Bowel Sounds, Soft, Non-Tender, Hernia (ventral) (Male) Exam: Deferred Back Exam: Normal Inspection Extremities: Normal Inspection Skin: Warm, Dry, Intact, Rash (chronic folliculitis/dermatitis over upper back) Neurological: No New Focal Deficit Psy/Mental Status: Alert, Normal Affect, Normal Mood - Problem List & Annotations (1) Pneumonia due to Pseudomonas aeruginosa SNOMED Code(s): 50050409 Code(s): J15.1 - PNEUMONIA DUE TO PSEUDOMONAS Status: Acute Priority: High Current Visit: Yes Onset Date: ~08/01/18 - Problem List Review Problem List Initiated/Reviewed/Updated: Yes - My Orders Last 24 Hours: My Active Orders 08/03/18 14:53 Patient Status [ADT] Routine Height and Weight [RC] DAILY May Shower [RC] ASDIRECTED Oxygen Therapy [RC] 2300 Up ad Kristel [RC] ASDIRECTED VTE/DVT Education [RC] DAILY Blood Culture x2 Reflex Set [OM.PC] Stat Resuscitation Status Routine 08/03/18 14:55 Intake and Output [RC] QSHIFT 08/03/18 14:56 Antiembolic Devices [RC] PER UNIT ROUTINE Antiembolic Hose [OM.PC] Per Unit Routine 08/03/18 14:57 Peripheral IV Care [RC] 08,20 Sodium Chloride 0.9% [Saline Flush] 10 ml FLUSH ASDIRECTED PRN Peripheral IV Insertion Adult [OM.PC] Routine 08/03/18 15:03 Consult to Case Management/Housecleaner Floor [CONS] Routine 08/03/18 15:08 CULTURE BLOOD [BC] Stat 08/03/18 15:15 CULTURE BLOOD [BC] Stat 08/03/18 16:00 Piperacillin/Tazobactam [Zosyn] 3.375 gm Sodium Chloride 0.9% [Normal Saline] 100 ml IV Q6H cefTAZidime Pentahydrate [Fortaz] 1 gm IVPUSH Q8HR 08/03/18 17:12 Acetaminophen [Tylenol Extra Strength] 1,000 mg PO TID PRN Albuterol [Proventil Neb Soln] 2.5 mg NEB Q4HR PRN Albuterol [Ventolin HFA] 0 gm INH Q6H PRN Lidocaine HCl [Aspercreme] 1 applic TP TID PRN Loperamide [Imodium AD] 2 mg PO ASDIRECTED PRN Polyethylene Glycol 3350 [MiraLAX] 17 gm PO DAILY PRN Triamcinolone Acetonide [Triamcinolone Acetonide 0.025%] 0 gm TOP TID PRN Triamcinolone Acetonide [Triamcinolone Acetonide 0.5%] 0 gm TOP DAILY PRN hydrOXYzine HCl [Atarax] 25 mg PO BID PRN traMADol [Ultram] 50 mg PO BEDTIME PRN 08/03/18 18:00 methylPREDNISolone Sod Succ [Solu-MEDROL] 40 mg IVPUSH Q8H 08/03/18 20:00 Vital Signs [RC] QID Albuterol/Ipratropium [DuoNeb 3.0-0.5 MG/3 ML] 3 ml INH QID Triamcinolone Acetonide [Triamcinolone Acetonide 0.5%] 0 gm TOP TID@0800,1400, 1999 hydrOXYzine HCl [Atarax] 25 mg PO BID@0800,2000 08/03/18 Dinner Regular Diet [DIET] 08/04/18 08:00 Arformoterol [Brovana] 15 mcg INH Q12H Aspirin [Halfprin] 81 mg PO DAILY Fluticasone Propionate [Flonase] 0 gm NASBOTH DAILY Loratadine [Claritin] 10 mg PO DAILY Tiotropium [Spiriva HandiHaler] 18 mcg INH DAILY hydroCHLOROthiazide 25 mg PO DAILY 08/05/18 05:11 C-REACTIVE PROTEIN [CHEM] AM CBC WITH AUTO DIFF [HEME] AM COMPREHENSIVE METABOLIC PN,CMP [CHEM] AM 08/06/18 05:11 C-REACTIVE PROTEIN [CHEM] AM CBC WITH AUTO DIFF [HEME] AM COMPREHENSIVE METABOLIC PN,CMP [CHEM] AM 08/07/18 05:11 C-REACTIVE PROTEIN [CHEM] AM CBC WITH AUTO DIFF [HEME] AM COMPREHENSIVE METABOLIC PN,CMP [CHEM] AM - Plan Plan:: 08-03-18 Jose Angel Colvin PA-C Patient is being admitted for IP treatment for the Pseudomonas aeruginosa pneumonia, using IV Fortaz and Zosyn per the C&S results. He has long-standing oxygen-dependent COPD and Chronic Respiratory Failure with Hypoxia. He will require at least 96 hours of IP treatment. I did call up to the [facility] and spoke with Wharf Hand Vani, but they have no bed availability today. Consult ordered for Improvement Rn to [facility] a bed becomes [facility]. Dr. Pacheco notified of this admission at the time of admit. 08-04-18 Jose Angel Colvin PA-C Patient says he is feeling a tiny bit better than yesterday, says yesterday was awful. Denies any chest pain, says eating well. I did speak with Dr. Soto at the [facility] who wanted another set of ABG's so these are ordered and reported to Dr. Soto, and he does accept for transfer. Transfer via [facility] to [facility].
--- NOTE | 2018-08-04 14:09 | PCM.DCSUM1 ---
Discharge Summary - Hospital Course Free Text/Narrative:: Admitted IP for treatment of Pseudomonas aeruginosa pneumonia. Had contacted [facility], patient's first choice for hospital, but there was no bed available. Diagnosis: Stroke: No - Discharge Data Discharge Date: 08/04/18 Discharge Disposition: DC/Tfer to Acute Hospital 02 Condition: Fair - Discharge Diagnosis/Problem(s) (1) Pneumonia due to Pseudomonas aeruginosa SNOMED Code(s): 46699768 ICD Code: J15.1 - PNEUMONIA DUE TO PSEUDOMONAS Status: Acute Priority: High Current Visit: Yes Onset Date: ~08/01/18 - Patient Summary/Data Consults: Consultations 08/03/18 15:03 Consult to Case Management/Elevator Constructor [CONS] Routine Hospital Course: Treatment initiated with IV Fortaz and Zosyn per C&S report. Oxygen continuously at 5L/m. - Discharge Plan *PRESCRIPTION DRUG MONITORING PROGRAM REVIEWED*: Not Applicable *COPY OF PRESCRIPTION DRUG MONITORING REPORT IN PATIENT EDWINA: Not Applicable Home Medications: Home Meds Albuterol Sulfate [Proair Respiclick] 2 puff IH Q6HR PRN 03/14/18 [History] Albuterol/Ipratropium [DuoNeb 3.0-0.5 MG/3 ML] 1 ampule INH QID 03/14/18 [ History] Budesonide [Pulmicort] 1 ampule INH Q12HR 03/14/18 [History] Calcium Carbonate/Vitamin D3 [OystCal-D 250 MG-125 Units] 2 tab PO DAILY [History] Cholecalciferol (Vitamin D3) [Vitamin D3] 2,000 unit PO DAILY 03/14/18 [History] Cyanocobalamin (Vitamin B-12) [B-12] 1 tab PO DAILY 03/14/18 [History] Eucalyptus Oil/Menthol/Camphor [Vicks Vaporub Ointment] 1 applic TP ASDIRECTED PRN 03/14/18 [History] Loperamide [Imodium AD] 2 mg PO ASDIRECTED PRN 03/14/18 [History] Loratadine 10 mg PO DAILY 03/14/18 [History] Magnesium Oxide 420 mg PO BID 03/14/18 [History] PARoxetine HCl [Paxil] 40 mg PO BEDTIME 03/14/18 [History] Polyethylene Glycol 3350 [MiraLAX] 17 gm PO DAILY PRN 03/14/18 [History] hydroCHLOROthiazide [Hydrochlorothiazide] 25 mg PO DAILY 03/14/18 [History] Acetaminophen [Tylenol Extra Strength] 1,000 mg PO DAILY@16 08/03/18 [History] Acetaminophen [Tylenol Extra Strength] 1,000 mg PO TID PRN 08/03/18 [History] Albuterol Sulfate 2.5 mg NEB Q4HR PRN 08/03/18 [History] Aspirin [Lo-Dose Aspirin EC] 81 mg PO DAILY 08/03/18 [History] Fluticasone Propionate [Flonase] 2 sprays NS DAILY 08/03/18 [History] Lidocaine HCl [Aspercreme] 1 applic TP TID PRN 08/03/18 [History] Mirtazapine 60 mg PO BEDTIME 08/03/18 [History] Non-Formulary Medication [NF Drug] 2 puff INH DAILY 08/03/18 [History] Non-Formulary Medication [NF Drug] 2 puff INH DAILY 08/03/18 [History] Triamcinolone Acetonide [Triamcinolone Acetonide 0.025%] 1 applic TOP TID PRN [History] Triamcinolone Acetonide [Triamcinolone Acetonide 0.5%] 1 applic .XX DAILY PRN [History] Triamcinolone Acetonide [Triamcinolone Acetonide 0.5%] 1 applic TOP TID [History] hydrOXYzine HCl [Atarax] 25 mg PO BID 08/03/18 [History] hydrOXYzine HCl [Atarax] 25 mg PO BID PRN 08/03/18 [History] predniSONE [Prednisone] 5 mg PO DAILY 08/03/18 [History] traMADol [Ultram] 50 mg PO BEDTIME PRN 08/03/18 [History] Oxygen Therapy Mode: Nasal Cannula Oxygen Flow Rate (L/min): 5 Patient Handouts: [facility] Pneumonia - Discharge Summary/Plan Comment DC Time >30 min.: Yes Discharge Summary/Plan Comment: Transferred today to the [facility] for continuing care for Pseudomonas aeruginosa pneumonia, via [facility]. - Patient Data Vitals - Most Recent: Last Vital Signs Temp 97.9 F 08/04/18 12:00 Pulse 99 08/04/18 12:00 Resp 16 08/04/18 12:00 BP 128/68 08/04/18 12:00 Pulse Ox 94 L 08/04/18 12:00 Weight - Most Recent: 182 lb 15.986 oz I&O - Last 24 hours: Intake & Output 08/03/18 08/04/18 08/04/18 22:59 06:59 14:59 Intake Total 273 707 6790 Balance 622 539 1123 Lab Results - Last 24 hrs: Laboratory Results - last 24 hr 08/04/18 08/04/18 08/04/18 Range/Units 07:20 07:20 12:38 WBC 6.4 (4.0-10.2) K/uL RBC 3.44 L (4.33-5.41) M/uL Hgb 11.7 L (13.1-16.8) g/dL Hct 36.2 L (39.0-49.0) % MCV 105.2 H (84.0-98.0) fL MCH 34.0 H (28.2-33.3) pg MCHC 32.3 (31.7-36.0) g/dL RDW 12.9 (11.2-14.1) % Plt Count 238 (150-350) K/uL Neut % (Auto) 82.8 H (45.0-80.0) % Lymph % (Auto) 12.5 (10.0-50.0) % [place] % (Auto) 4.5 (2.0-14.0) % Eos % (Auto) 0.0 (0.0-5.0) % Baso % (Auto) 0.2 (0.0-2.0) % Neut # (Auto) 5.28 (1.40-7.00) K/uL Lymph # (Auto) 0.80 (0.50-3.50) K/uL [place] # (Auto) 0.29 (0.00-1.00) K/uL Eos # (Auto) 0.00 (0.00-0.50) K/uL Baso # (Auto) 0.01 (0.00-0.20) K/uL ABG pH 7.38 (7.35-7.45) ABG pCO2 57 H* (35-45) mmHG ABG pO2 47 L* (80-105) mmHG ABG HCO3 33.6 H (22-26) mmol/L ABG Total CO2 35 H (23-27) mmol/L ABG O2 Saturation 80 L (95-98) % ABG Base Excess 8 H (-2-3) mmol/L O2 Delivery Device Nasal cannula Sodium 143 (136-145) mmol/L Potassium 3.7 (3.5-5.1) mmol/L Chloride 103 (98-107) mmol/L Carbon Dioxide 33.5 H (21.0-32.0) mmol/L BUN 20 H (7-18) mg/dL Creatinine 1.01 (0.51-1.17) mg/dL Est Cr Clr Drug Dosing 51.68 mL/min Estimated GFR (MDRD) > 60 mL/min Glucose 153 H (74-106) mg/dL Calcium 8.6 (8.5-10.1) mg/dL Total Bilirubin 0.6 (0.2-1.0) mg/dL AST 17 (15-37) U/L ALT 19 (12-78) U/L Alkaline Phosphatase 75 (46-116) IU/L C-Reactive Protein 2.2 H (<=0.9) mg/dL NT-Pro-B Natriuret Pep 494 H (0-125) pg/mL Total Protein 6.5 (6.4-8.2) g/dL Albumin 3.2 L (3.4-5.0) g/dL Med Orders - Current: Current Medications Acetaminophen (Tylenol Extra Strength) 1,000 mg PO TID PRN PRN Reason: Pain Acetaminophen (Tylenol Extra Strength) 1,000 mg PO DAILY@1600 [facility] Albuterol (Proventil Neb Soln) 2.5 mg NEB Q4HR PRN PRN Reason: Shortness of Breath Last Admin: 08/03/18 17:47 Dose: 2.5 mg Albuterol (Ventolin Hfa) 0 gm INH Q6H PRN PRN Reason: Shortness of Breath Albuterol/Ipratropium (Duoneb 3.0-0.5 Mg/3 Ml) 3 ml INH QID CAROLEE Last Admin: 08/04/18 11:48 Dose: 3 ml Arformoterol Tartrate (Brovana) 15 mcg INH Q12H [facility] Last Admin: 08/04/18 08:24 Dose: 15 mcg Aspirin (Halfprin) 81 mg PO DAILY [facility] Last Admin: 08/04/18 08:23 Dose: 81 mg Ceftazidime (Fortaz) 1 gm IVPUSH Q8HR [facility] Last Admin: 08/04/18 08:24 Dose: 1 gm Fluticasone Propionate (Flonase) 0 gm NASBOTH DAILY [facility] Last Admin: 08/04/18 08:24 Dose: 2 sprays Hydrochlorothiazide (Hydrochlorothiazide) 25 mg PO DAILY [facility] Last Admin: 08/04/18 08:23 Dose: 25 mg Hydroxyzine HCl (Atarax) 25 mg PO BID PRN PRN Reason: Itching Hydroxyzine HCl (Atarax) 25 mg PO BID@0800,2000 [facility] Last Admin: 08/04/18 08:23 Dose: 25 mg Piperacillin Sod/Tazobactam (Sod 3.375 gm/ Sodium Chloride) 100 mls @ 200 mls/ hr IV Q6H [facility] Last Admin: 08/04/18 09:02 Dose: 200 mls/hr Loperamide HCl (Imodium Ad) 2 mg PO ASDIRECTED PRN PRN Reason: Diarrhea Loratadine (Claritin) 10 mg PO DAILY [facility] Last Admin: 08/04/18 08:23 Dose: 10 mg Methylprednisolone Sodium Succinate (Solu-Medrol) 40 mg IVPUSH Q8H [facility] Last Admin: 08/04/18 09:01 Dose: 40 mg Mirtazapine (Remeron) 60 mg PO BEDTIME [facility] Last Admin: 08/03/18 22:29 Dose: 60 mg Lidocaine Hcl [ Aspercreme] 1 Applic ) 1 applic TP TID PRN PRN Reason: Pain Paroxetine HCl (Paxil) 40 mg PO BEDTIME [facility] Last Admin: 08/03/18 22:29 Dose: 40 mg Polyethylene Glycol (Miralax) 17 gm PO DAILY PRN PRN Reason: Constipation Sodium Chloride (Saline Flush) 10 ml FLUSH ASDIRECTED PRN PRN Reason: Keep Vein Open Last Admin: 08/04/18 09:03 Dose: 10 ml Sodium Chloride (Saline Flush) 10 ml FLUSH Q12HR [facility] Last Admin: 08/04/18 08:25 Dose: 10 ml Tiotropium [place] (Spiriva Handihaler) 18 mcg INH DAILY [facility] Last Admin: 08/04/18 08:25 Dose: 18 mcg Tramadol HCl (Ultram) 50 mg PO BEDTIME PRN PRN Reason: Pain Triamcinolone Acetonide (Triamcinolone Acetonide 0.025%) 0 gm TOP TID PRN PRN Reason: Itching Triamcinolone Acetonide (Triamcinolone Acetonide 0.5%) 0 gm TOP DAILY PRN PRN Reason: Itching Triamcinolone Acetonide (Triamcinolone Acetonide 0.5%) 0 gm TOP TID@0800,1400, 2000 [facility] Last Admin: 08/04/18 09:01 Dose: 1 applic Discontinued Medications Acetaminophen (Tylenol Extra Strength) 1,000 mg PO DAILY [facility] Budesonide (Pulmicort) mg INH BID [facility] Hydroxyzine HCl (Atarax) 25 mg PO BID [facility] Mirtazapine (Remeron) 60 mg PO DAILY [facility] Non-Formulary Medication (Cholecalciferol (Vitamin D3) [Vitamin D3]) 2,000 unit PO DAILY [facility] Non-Formulary Medication (Cyanocobalamin (Vitamin B-12) [B-12]) 1 tab PO DAILY [facility] Pneumococcal Polyvalent Vaccine (Pharmacy To Dose - Pneumonia) 1 each .XX ASDIRECTED [facility] Triamcinolone Acetonide (Triamcinolone Acetonide 0.5%) 0 gm TOP TID [facility] Last Admin: 08/03/18 18:41 Dose: Not Given
== END 2018-08-04 14:50 | DRG 178 ==
LOC: LL.MS 14:24
PROVIDERS: ADMIT Physician Assistant; ATTEND Family Medicine
DX: J15.1 Pneumonia due to Pseudomonas (principal); J96.11 Chronic respiratory failure with hypoxia; H54.7 Unspecified visual loss; I25.10 Atherosclerotic heart disease of native coronary artery without angina pectoris; E78.00 Pure hypercholesterolemia, unspecified; I10 Essential (primary) hypertension; J44.9 Chronic obstructive pulmonary disease, unspecified; G47.30 Sleep apnea, unspecified; K59.09 Other constipation; K21.9 Gastro-esophageal reflux disease without esophagitis; G89.29 Other chronic pain; M54.9 Dorsalgia, unspecified; F41.9 Anxiety disorder, unspecified; F32.9 Major depressive disorder, single episode, unspecified; E55.9 Vitamin D deficiency, unspecified; Z90.49 Acquired absence of other specified parts of digestive tract; Z87.891 Personal history of nicotine dependence; Z99.81 Dependence on supplemental oxygen; I25.2 Old myocardial infarction; Z79.51 Long term (current) use of inhaled steroids; Z79.899 Other long term (current) drug therapy
CPT/HCPCS: 36415; 80053; 82803; 83880; 85025; 86140; 87040; 94640; A9270-GY; J0713; J2543; J2920; J7050; J7613-GY; J7620-GY